=== PATIENT | female | born 1980 | race Two or more races ===

== ENCOUNTER 2018-12-16 13:56 | Outpatient (CLI) | payer OTHER ==
[~2018-12-16 13:56] MED LIST: HYDR-3240 PO; IBUP200T49 PO; None per pt
== END 2018-12-16 23:59 | disposition home or self-care (01) ==
LOC: CFH 13:56
PROVIDERS: ATTEND Family Medicine
DX: N63.21 Unspecified lump in the left breast, upper outer quadrant (principal); N64.4 Mastodynia
CPT/HCPCS: 76642; 77066

== ENCOUNTER 2021-04-05 05:53 | Emergency (ER) | payer OTHER ==
[~2021-04-05] VITALS: Ht 154.9 cm; Wt 66.0 kg
[~2021-04-05 05:53] MED LIST changes: +HYDR-2214 PO; -HYDR-3240 PO
--- NOTE | 2021-04-05 06:15 | NUR ---
PT C/O HEART PALPITATIONS AND UNABLE TO BREATH WELL DUE TO A TIGHT FEELING IN HER CHEST, DESCRIBED "BOTTLED UP", THAT WOKE HER UP AT 0400. PT DENIES PALPITATIONS CURRENTLY, BUT STILL FEELS LIKE HER BREATHING IS "BOTTLED UP". PT HAS FELT LIKE THIS BEFORE, BUT HAS NOT BEEN TO A DR TO DETERMINE CAUSE. PT DENIES WATKINS OR N/V. VSS. PT ON ED ZAKI, RAILS UP X 1, CALL LIGHT WITHIN REACH.
[2021-04-05 07:10] LABS: BASOPHILS % (AUTO) 1 % (0-1); EOSINOPHILS % (AUTO) 3 % (1-7); LYMPHOCYTES % (AUTO) 24 % (22-44); MEAN CORPUSCULAR HEMOGLOBIN 31.6 pg (27.0-34.8); MEAN CORPUSCULAR HGB CONC 33.7 g/dL (32.4-35.8); MEAN PLATELET VOLUME 10.3 fL (7.4-10.4); MONOCYTES % (AUTO) 7 % (2-9); NEUTROPHILS % (AUTO) 66 % (42-75); PLATELET COUNT 145 x10^3/uL (130-400); RED BLOOD COUNT 4.88 x10^6/uL (3.82-5.3); RED CELL DISTRIBUTION WIDTH 13.6 % (9.6-15.2)
[2021-04-05 07:20] LABS: ALBUMIN 3.9 g/dL (3.4-5.0); ANION GAP 5 mmol/L (5-15); CALCIUM 8.7 mg/dL (8.5-10.1); CHLORIDE 109 mmol/L (98-107)
[2021-04-05 07:26] LABS: ALANINE AMINOTRANSFERASE 52 U/L (12-78); ALKALINE PHOSPHATASE 54 U/L (45-117); BILIRUBIN,TOTAL 0.7 mg/dL (0.2-1.0); CREATININE 0.79 mg/dL (0.55-1.02); FREE T4 (FREE THYROXINE) 0.94 ng/dL (0.76-1.46); TOTAL PROTEIN 7.6 g/dL (6.4-8.2); TROPONIN I < 0.015 ng/mL (0.000-0.045)
[2021-04-05 07:36] LABS: MD NO
[2021-04-05 08:11] VITALS: BP 106/64
--- NOTE | 2021-04-05 08:12 | NUR ---
PT REC'VD DISCHARGE INSTRUCTIONS AND EDUCATION. PT HAD NO FURTHER QUESTIONS.
--- NOTE | 2021-04-05 08:13 | NUR ---
PT AMBULATED TO MA AREA, STEADY GAIT
== END 2021-04-05 08:15 | disposition home or self-care (01) ==
LOC: ED 06:17
DX: R00.2 Palpitations (principal); R06.00 Dyspnea, unspecified; R94.31 Abnormal electrocardiogram [ECG] [EKG]; Z88.6 Allergy status to analgesic agent
CPT/HCPCS: 36415; 71046; 80053; 84439; 84443; 84484; 85025; 93005; 99285

== ENCOUNTER 2021-07-27 13:55 | Outpatient (CLI) | payer OTHER ==
[2021-07-27 15:07] LABS: MICROSCOPIC AUTO
== END 2021-07-27 23:59 | disposition home or self-care (01) ==
LOC: CFH 13:55
PROVIDERS: ATTEND Internal Medicine Cardiovascular Disease
DX: R00.2 Palpitations (principal); R31.9 Hematuria, unspecified
CPT/HCPCS: 81001; 93306; 93356